=== PATIENT | male | born 1970 | race Caucasian/White ===

== ENCOUNTER 2019-09-15 19:51 | Observation (INO) ==
[2019-09-15] MEDS ORDERED: IOPAMIDOL 100 ML BOTTLE IV ONE (19:52)
--- NOTE | 2019-09-15 20:08 | Emergency Department Note ---
SOB HPI - General Chief Complaint: Shortness of Breath/Dyspnea Stated Complaint: chest pain, SOB Time Seen by Provider: 09/15/19 19:58 Source: patient Mode of arrival: ambulatory Limitations: no limitations - History of Present Illness Surgery on his right arm today comes in now complaining of shortness of breath and chest pressure. He has no cardiac history nor history of COPD or asthma. States that it feels like he just cannot catch his breath. No history of DVT or PEs. Surgery today was an ulnar nerve transposition on his right arm for which he had general anesthesia-this was done over at the orthopedics surgical center - Related Data Home Medications Medication Instructions Recorded Confirmed Alpha Lipoic Acid 200 mg PO 05/01/18 Gabapentin [Neurontin] 300 mg PO ONCE 05/01/18 05/01/18 Lisinopril [Zestril] 5 mg PO DAILY 05/01/18 05/01/18 Phentermine HCl [Adipex-P] 37.5 mg PO 05/01/18 Sertraline [Zoloft] 50 mg PO DAILY 05/01/18 05/01/18 Torsemide [Demadex] 20 mg PO 05/01/18 metFORMIN HCL [Fortamet] 1,000 mg PO 05/01/18 Previous Rx's Medication Instructions Recorded Cephalexin [Keflex] 500 mg PO QID #40 cap 08/13/18 Allergies Allergy/AdvReac Type Severity Reaction Status Date / Time No Known Drug Allergies Allergy Verified 09/15/19 19:54 Review of Systems All systems ED: reviewed and negative except as stated. Past Medical History - Past Medical History Attestation: Yes: The following information was validated with the patient. Medical history: Reports: DM, other (Peripheral neuropathy, sleep apnea) Psychiatric history: Reports: depression Surgical history ED: Reports: orthopedic, other (Ulnar nerve transposition bilateral), vascular surgery (Vein stripping) - Social History smoking status: Former smoker Alcohol use: Reports: Rarely Drug use: Reports: none Physical Exam No acute distress resting. Normocephalic atraumatic. Conjunctive are clear sclera white nonicteric. No nasal discharge digestion. Oropharynx pink and moist. Posterior pharynx is clear. Neck is supple without lymphadenopathy or thyromegaly. Heart is regular rate and rhythm no murmurs appreciated. Lungs are clear to auscultation bilaterally without wheezes rales rhonchi or respiratory distress. Abdomen is soft nontender nondistended. No peritoneal signs or guarding. Right arm is in a Trever wrap/splint. Bilateral lower legs wit hout edema Limitations: no limitations Course Vital Signs Temperature 97.9 F 09/15/19 19:52 Respiratory Rate 20 09/15/19 19:52 Blood Pressure 153/84 09/15/19 19:52 Pulse Oximetry (%) 95 09/15/19 19:52 Temperature 97.9 F 09/15/19 19:52 Pulse Rate 80 09/15/19 23:01 Respiratory Rate 18 09/15/19 23:01 Blood Pressure 138/77 09/15/19 23:01 Pulse Oximetry (%) 94 09/15/19 23:01 Shortness of Breath/Dyspnea - Lab Data Lab results reviewed: Yes I reviewed the patient's lab results. Result diagrams: 09/15/19 20:05 09/15/19 20:05 Lab Results 09/15/19 09/15/19 09/15/19 Range/Units 20:05 20:05 20:05 WBC 5.9 (4.5-11.0) K/mcL RBC 4.31 L (4.50-5.90) M/mcL Hgb 14.4 (13.5-16.5) g/dL Hct 43.0 (41.0-55.0) % POC Hct 42.0 (41.0-55.0) % MCV 99.9 (80.0-100.0) fL MCH 33.5 (26.0-34.0) pg MCHC 33.5 (31.0-36.0) g/dL RDW 13.0 (11.5-14.5) % Plt Count 104 L (140-440) K/mcL MPV 9.0 (7.4-10.4) fL Gran % 91.0 H (38.0-78.0) % Lymph % (Auto) 8.0 L (15.5-49.0) % Roosevelt % (Auto) 0.8 L (1.0-12.0) % Eos % (Auto) 0.2 (0.0-7.0) % Baso % (Auto) 0 (0.0-2.0) % Gran # 5.4 (1.8-8.0) K/mcL Lymph # (Auto) 0.5 L (1.5-4.8) K/mcL Roosevelt # (Auto) 0 L (0.1-0.9) K/mcL Eos # (Auto) 0 (0.0-0.7) K/mcL Baso # (Auto) 0 (0.0-0.3) K/mcL VBG Lactic Acid 4.8 H* (0.5-2.0) mmol/L POC Sodium 137 (133-145) mmol/L Sodium 136 (133-145) mmol/L POC Potassium 4.1 (3.3-5.1) mmol/L Potassium 4.1 (3.3-5.1) mmol/L POC Chloride 100 (96-108) mmol/L Chloride 98 (96-108) mmol/L Carbon Dioxide 23 (22-30) mmol/L POC Total CO2 25 (22-30) mmol/L Anion Gap 15.0 (8-16) POC BUN 20 (6-20) mg/dl BUN 20 (6-20) mg/dl Creatinine 1.3 H (0.7-1.2) mg/dl POC Creatinine 1.2 (0.7-1.2) mg/dl GFR Calculation 64 Glucose 364 H (70-105) mg/dL POC Glucose 347 H (70-105) mg/dL Calcium 8.8 (8.6-10.4) mg/dl POC WB Ioniz Calcium 1.12 L (1.16-1.32) mmol/L Magnesium 2.0 (1.6-2.5) mg/dL Total Bilirubin 0.9 (0.0-1.0) mg/dL AST 30 (0-37) U/l ALT 34 (0-40) U/l Alkaline Phosphatase 75 (39-117) U/L Troponin T (0-0.03) ng/ml Total Protein 6.8 (5.9-8.4) gm/dL Albumin 4.3 (3.2-5.2) gm/dL Globulin 2.5 (2.2-3.7) gm/dL Albumin/Globulin Ratio 1.7 (1.0-2.3) Lipase 22 (7-60) U/L 09/15/19 09/15/19 09/15/19 Range/Units 20:05 22:05 22:05 WBC (4.5-11.0) K/mcL RBC (4.50-5.90) M/mcL Hgb (13.5-16.5) g/dL Hct (41.0-55.0) % POC Hct 40.0 L (41.0-55.0) % MCV (80.0-100.0) fL MCH (26.0-34.0) pg MCHC (31.0-36.0) g/dL RDW (11.5-14.5) % Plt Count (140-440) K/mcL MPV (7.4-10.4) fL Gran % (38.0-78.0) % Lymph % (Auto) (15.5-49.0) % Roosevelt % (Auto) (1.0-12.0) % Eos % (Auto) (0.0-7.0) % Baso % (Auto) (0.0-2.0) % Gran # (1.8-8.0) K/mcL Lymph # (Auto) (1.5-4.8) K/mcL Roosevelt # (Auto) (0.1-0.9) K/mcL Eos # (Auto) (0.0-0.7) K/mcL Baso # (Auto) (0.0-0.3) K/mcL VBG Lactic Acid 4.1 H* (0.5-2.0) mmol/L POC Sodium 138 (133-145) mmol/L Sodium (133-145) mmol/L POC Potassium 4.0 (3.3-5.1) mmol/L Potassium (3.3-5.1) mmol/L POC Chloride 103 (96-108) mmol/L Chloride (96-108) mmol/L Carbon Dioxide (22-30) mmol/L POC Total CO2 22 (22-30) mmol/L Anion Gap (8-16) POC BUN 19 (6-20) mg/dl BUN (6-20) mg/dl Creatinine (0.7-1.2) mg/dl POC Creatinine 1.1 (0.7-1.2) mg/dl GFR Calculation Glucose (70-105) mg/dL POC Glucose 264 H (70-105) mg/dL Calcium (8.6-10.4) mg/dl POC WB Ioniz Calcium 1.04 L (1.16-1.32) mmol/L Magnesium (1.6-2.5) mg/dL Total Bilirubin (0.0-1.0) mg/dL AST (0-37) U/l ALT (0-40) U/l Alkaline Phosphatase (39-117) U/L Troponin T < 0.01 (0-0.03) ng/ml Total Protein (5.9-8.4) gm/dL Albumin (3.2-5.2) gm/dL Globulin (2.2-3.7) gm/dL Albumin/Globulin Ratio (1.0-2.3) Lipase (7-60) U/L ABG shows mild hypoxia but otherwise normal - Radiology Data Radiology results reviewed: Yes I reviewed the patient's radiology results. CT scan of the lungs show no acute findings except for some atelectasis - EKG Data EKG attestation: Yes I reviewed and interpreted this EKG., Yes There are no EKG findings of acute coronary syndrome, Yes This EKG will be read by line mechanic Disposition Pt seen by WEB UI DEVELOPER/PA only: No Clinical Impression: Lactic acidosis, Status post surgery Hyperglycemia due to type 2 diabetes mellitus Qualifiers: Diabetes mellitus ferry terminal agent insulin use: without mcc use Qualified Cod e(s): E11.65 - Type 2 diabetes mellitus with hyperglycemia Summary: Concern for possible PE versus aspiration pneumonia versus COPD exacerbation. PE is most concerning given his recent surgical history and chest pressure. He is currently with normal vital signs and oxygen levels on room air. However we will check an ABG and a CTA of the chest. labs ordered. Blood sugar was elevated over 300 so insulin ordered 4 units. ABG showed mild hypoxia but otherwise compensated with normal pH. However lactic acid was 4.8. IV fluids were started. Concern for possible metformin related lactic acidosis After IV fluids labs were repeated. Glucose was improved but lactic acid did not improve as much as expected. It came down to 4.1- As we do not have another cause this is likely metformin related lactic acidosis. Discussed with patient his results. He is agreeable to staying in the hospital to sort this out Discussed with hospitalist, Dr. Blunt-he agreed to admit the patient for observation status for lactic acidosis likely from metformin, watch him and hydrate him overnight. His friend went to go get his CPAP so that the patient could use it overnight Disposition: Xfer As Outpt/Obs ([facility]) Condition: Fair Referrals: Monica Castillo ARNP [Primary Care Provider] - Andrew Zimmerman MD [Physician] -
[2019-09-15 20:16] LABS: POC Blood Urea Nitrogen 20 mg/dl (6-20); POC CO2 25 mmol/L (22-30); POC Calcium, Ionized 1.12 mmol/L (1.16-1.32); POC Chloride 100 mmol/L (96-108); POC Creatinine 1.2 mg/dl (0.7-1.2); POC Glucose, Random 347 mg/dL (70-105); POC Potassium 4.1 mmol/L (3.3-5.1); POC Sodium 137 mmol/L (133-145)
[2019-09-15] MEDS ORDERED: INSULIN REGULAR, HUMAN 1 UNIT/0.01 ML UNIT SQ ONE (20:33)
--- NOTE | 2019-09-15 20:52 | Cat Scan Report ---
CLINICAL INFORMATION: Previous orthopedic surgery. Dyspnea COMPARISON: None TECHNIQUE: Axial images obtained through the chest. 90ml Isovue 370 injected intravenously, and scanning was performed during pulmonary arterial phase. Sagittally and coronally reformatted images were obtained. MIP reformatted images. FINDINGS: Lungs:There is volume loss in the posterior and medial right lower lobe and right upper lobe. Lungs are otherwise negative. No other focal pulmonary parenchymal infiltrate or mass. No significant central lobular emphysema. Lungs are of relatively low volume Mediastinum, vascular:Main pulmonary artery, right pulmonary artery, left pulmonary artery are negative. No intraluminal filling defects. No lobar, segmental, or subsegmental abnormalities. Negative examination for pulmonary embolism. Thoracic aorta is negative. No thoracic aortic aneurysm. No dissection. There is no mediastinal adenopathy. No mediastinal or hilar mass Heart:No significant cardiomegaly. There is no pericardial effusion Pleura:No pleural effusion. Axilla, supraclavicular regions, chest wall:No axillary adenopathy. No supraclavicular adenopathy. Musculoskeletal:There is a T8 vertebral body hemangioma. This is benign. No compression fractures. Sternum and ribs are negative. No fracture. No lytic lesion. Upper Abdomen:Liver is low density consistent with hepatic steatosis. There is a nonspecific 12 mm low-density lesion in the posterior segment of the right lobe of the liver. This is probably a benign cyst. If this patient has a history of primary malignancy further evaluation is recommended. Findings are consistent with hepatic steatosis. Liver contour is smooth. There is no ascites. The spleen is not imaged in its entirety. The spleen measures 18.3 cm in AP diameter and 11.4 cm in mediolateral dimension. Findings are consistent with splenomegaly. IMPRESSION: 1. Negative pulmonary CTA. No pulmonary embolism 2. Finding loss in the posterior and medial aspects of the right lower lobe and right upper lobe. 3. Significant splenomegaly 4. Probable hepatic steatosis. 12 mm low-density abnormality in the right lobe of the liver is nonspecific The exam was performed using radiation dose optimization techniques including, but not limited to, automated exposure control, adjustment of the mA and/or kV according to patient size and use of iterative reconstruction technique. Interpreted and Authenticated by: Bruno Boyd 09/15/19
[2019-09-15 20:54] LABS: Basophils # (Auto) 0 K/mcL (0.0-0.3); Basophils % (Auto) 0 % (0.0-2.0); Eosinophils # (Auto) 0 K/mcL (0.0-0.7); Eosinophils % (Auto) 0.2 % (0.0-7.0); Hemoglobin 14.4 g/dL (13.5-16.5); Lymphocytes # (Auto) 0.5 K/mcL (1.5-4.8); Mean Cell Volume 99.9 fL (80.0-100.0); Mean Corpuscular HGB Conc 33.5 g/dL (31.0-36.0); Monocytes # (Auto) 0 K/mcL (0.1-0.9); Monocytes % (Auto) 0.8 % (1.0-12.0); Platelet Count 104 K/mcL (140-440); RBC 4.31 M/mcL (4.50-5.90); WBC 5.9 K/mcL (4.5-11.0)
[2019-09-15] MEDS ORDERED: 0.9 % SODIUM CHLORIDE 1,000 ML IV ONE ×2 (21:08→22:17)
[2019-09-15 21:39] LABS: ALT/SGPT 34 U/l (0-40); AST/SGOT 30 U/l (0-37); Albumin 4.3 gm/dL (3.2-5.2); Albumin/Globulin Ratio 1.7 (1.0-2.3); Alkaline Phosphatase 75 U/L (39-117); Bilirubin,Total 0.9 mg/dL (0.0-1.0); Blood Urea Nitrogen 20 mg/dl (6-20); Calcium 8.8 mg/dl (8.6-10.4); Carbon Dioxide 23 mmol/L (22-30); Chloride 98 mmol/L (96-108); Globulin 2.5 gm/dL (2.2-3.7); Glomerular Filtration Rate 64; Glucose 364 mg/dL (70-105)
[2019-09-15 22:12] LABS: POC Blood Urea Nitrogen 19 mg/dl (6-20); POC CO2 22 mmol/L (22-30); POC Calcium, Ionized 1.04 mmol/L (1.16-1.32); POC Chloride 103 mmol/L (96-108); POC Creatinine 1.1 mg/dl (0.7-1.2); POC Glucose, Random 264 mg/dL (70-105); POC Sodium 138 mmol/L (133-145)
[2019-09-15] MEDS ORDERED: INSULIN REGULAR, HUMAN 1 UNIT/0.01 ML UNIT IV ONE (22:21)
--- NOTE | 2019-09-15 23:27 | Internal Med History&Physical ---
Medical - H&P: HPI Patient information: Note initiated : 09/15/19 at 11:26 pm Service Date, if different from initiated Date: [] Patient: Rahul Cleary a 49 y/o M admitted on for chest pain, SOB. Chief Complaint: [] Chief complaint: Shortness of breath History of present illness: Mr. Cleary is a 49 year old M morbidly obese gentleman history of HANSEL and recurrent ulnar nerve compression syndrome who underwent right ulnar nerve repositioning surgery by Dr. Fu earlier today. Postoperative patient was discharged home however he started noticing increasing S OB and mid/substernal chest discomfort at rest without radiation or associated nausea diaphoresis or cough. Symptoms lasted for over 2 and half hours while at rest without relief with activity or movement prompting him to visit ER. Initial work-up was unremarkable with a CT angiogram chest however elevated lactate was noted 4.8. There was no signs of ischemia or infection during preliminary investigation. Patient received crystalloids and lactic acid down trended to 4.1. Patient carries a history of diabetes and is on metformin for last 10 years. Subsequently hospitalist service was consulted in light of shortness of breath and persistent elevated lactic acid of 4.1 of unclear etiology At the time evaluation patient is alert and oriented. He is currently on CPAP. Denies active distress and shortness of breath is improved but not quite at baseline. He is accompanied by his friend/emt intermediate. He is with 3 kids. He denies recent changes in medication, URI symptoms or sick contact. Denied productive sputum. He denies smoking or URI symptoms. He further denies significant pain at the operative site except that he is unable to move his fingers. His right forearm and hand is currently in postop erative dressing. Review of systems A 10 point review system was performed and is negative except was cussed above Medical - H&P: PMH Medical history: Morbid obesity with a BMI over 40 Neuropathy Hypertension Anxiety disorder DM type II Nerve compression syndrome Obstructive sleep apnea on CPAP Surgical history: Ulnar repositioning left arm Prior vascular surgery Medical - H&P: Meds Home Medications Medication Instructions Recorded Confirmed Type Alpha Lipoic Acid 200 mg PO DAILY 05/01/18 09/16/19 History Gabapentin [Neurontin] 300 mg PO TID 05/01/18 09/16/19 History Lisinopril [Zestril] 5 mg PO DAILY 05/01/18 09/16/19 History Torsemide [Demadex] 20 mg PO DAILY 05/01/18 09/16/19 History metFORMIN HCL [Fortamet] 1,000 mg PO BIDCC 05/01/18 09/16/19 History Multivitamin [One-Daily 1 tab PO DAILY 09/16/19 09/16/19 History Multi-Vitamin] Naproxen Sodium [Anaprox Ds] 550 mg PO Q12H PRN 09/16/19 09/16/19 History buPROPion HCL [Wellbutrin Xl] 150 mg PO DAILY 09/16/19 09/16/19 History Allergies Allergy/AdvReac Type Severity Reaction Status Date / Time No Known Drug Allergies Allergy Verified 09/16/19 01:18 Medical - H&P: Exam - Constitutional Vitals: Temp Pulse Resp BP Pulse Ox 97.9 F 80 18 138/77 94 09/15/19 19:52 09/15/19 23:01 09/15/19 23:01 09/15/19 23:01 09/15/19 23:01 General appearance: morbidly obese Exam: Alert and oriented head normocephalic Eye movement symmetrical Oral cavity dry No ear nose discharge Neck no lymphadenopathy S1-S2 regular rhythm Diminished breath sounds bases Abdomen pendulous but soft nontender nondistended Right upper extremity covered in postoperative dressing, no finger movements Lower extremity no cyanosis clubbing no joint swelling Skin no suspicious lesion Psych alert cooperative Neuro nonfocal Medical - H&P: Reslt - Labs CBC & Chem 7: 09/17/19 04:05 09/17/19 04:05 Labs: Short CBC 09/15/19 Range/Units 20:05 WBC 5.9 (4.5-11.0) K/mcL Hgb 14.4 (13.5-16.5) g/dL Hct 43.0 (41.0-55.0) % Plt Count 104 L (140-440) K/mcL BMP 09/15/19 20:05 Sodium 136 Potassium 4.1 Chloride 98 Carbon Dioxide 23 BUN 20 Creatinine 1.3 H Glucose 364 H Calcium 8.8 Cardiac Enzymes 09/15/19 Range/Units 20:05 Troponin T < 0.01 (0-0.03) ng/ml Liver Function 09/15/19 Range/Units 20:05 Total Bilirubin 0.9 (0.0-1.0) mg/dL AST 30 (0-37) U/l ALT 34 (0-40) U/l Alkaline Phosphatase 75 (39-117) U/L Albumin 4.3 (3.2-5.2) gm/dL Medical - H&P: A/P (1) Lactic acidosis Current visit: Yes Status: Acute * Lactic acidosis, downtrending. No clear signs of Infection or ischemia or hypoperfusion state, consider metformin mediated. Continue crystalloids and recheck lactate * Dyspnea with h/o HANSEL on CPAP, negative CT angiogram chest with no evidence of infiltrates. Rule out cardiac etiology with echocardiogram * Post ulnar nerve repositioning right arm-postop day 1. Continue management per orthopedics * Anxiety disorder continue bupropion * Morbid obesity with a BMI over 40, continue nutrition support/physical therapy/decubitus prophylaxis * DM type II continue metformin//CCD/sliding scale insulin * Neuropathy continue gabapentin * History of hypertension continue LUIGI inhibitor * Obstructive sleep apnea continue CPAP * Full code * Prophylaxis heparin Plan * Crystalloids/serial lactate * Echocardiogram * Prior medical condition management on home meds * Postoperative care per orthopedics
[2019-09-16] MEDS ORDERED: MAGNESIUM SULFATE 2 GM/50 ML BAG IV PRN (00:42)
[2019-09-16] MEDS ORDERED: DEXTROSE 50% 50 ML VIAL IV PRN (00:42)
[2019-09-16] MEDS ORDERED: ONDANSETRON 4 MG/2 ML VIAL IV PRN (00:42)
[2019-09-16] MEDS ORDERED: POLYETHYLENE GLYCOL 3350 17 GM PACKET PO PRN (00:42)
[2019-09-16] MEDS ORDERED: POTASSIUM CHLORIDE 20 MEQ PACKET PO PRN (00:42)
[2019-09-16] MEDS ORDERED: ONDANSETRON 4 MG ODT TABLET SL PRN (00:42)
[2019-09-16] MEDS ORDERED: BISACODYL 10 MG SUPP.RECT PR PRN (00:42)
[2019-09-16] MEDS ORDERED: MELATONIN 3 MG TABLET PO PRN (00:42)
[2019-09-16] MEDS ORDERED: DEXTROSE 31 GM ORAL.SUSP PO PRN (00:42)
[2019-09-16] MEDS ORDERED: ACETAMINOPHEN 325 MG TABLET PO PRN (00:42)
[2019-09-16] MEDS ORDERED: INSULIN LISPRO 1 UNIT/0.01 ML UNIT SQ ONE (01:18)
[2019-09-16] MEDS: INSULIN LISPRO 1 UNIT/0.01 ML UNIT SQ SCH ×5 (01:19→20:48)
[2019-09-16] MEDS: 0.9 % SODIUM CHLORIDE 1,000 ML IV SCH ×3 (01:20→21:37)
[2019-09-16] MEDS ORDERED: HYDROcodone/APAP 5/325MG TABLET PO ONE ×2 (02:09→02:46)
[2019-09-16] MEDS ORDERED: IPRATROPIUM/ALBUTEROL 3 ML AMPUL.NEB NEB ONE (02:34)
[2019-09-16] MEDS: IPRATROPIUM/ALBUTEROL 3 ML AMPUL.NEB NEB SCH ×2 (02:48→07:24)
[2019-09-16] MEDS: 0.9 % SODIUM CHLORIDE 10 ML SYRINGE IV SCH ×3 (04:57→21:44)
[2019-09-16 05:33] LABS: Hematocrit 38.7 % (41.0-55.0); Hemoglobin 13.1 g/dL (13.5-16.5); Mean Cell Volume 100.8 fL (80.0-100.0); Mean Corpuscular HGB Conc 33.8 g/dL (31.0-36.0); Mean Platelet Volume 9.1 fL (7.4-10.4); Platelet Count 110 K/mcL (140-440); RBC 3.84 M/mcL (4.50-5.90); Red Cell Distribution Width 13.1 % (11.5-14.5); WBC 5.9 K/mcL (4.5-11.0)
[2019-09-16 05:45] LABS: ALT/SGPT 29 U/l (0-40); AST/SGOT 23 U/l (0-37); Albumin 3.8 gm/dL (3.2-5.2); Albumin/Globulin Ratio 1.8 (1.0-2.3); Alkaline Phosphatase 61 U/L (39-117); Bilirubin,Direct < 0.2 mg/dL (0.0-0.3); Bilirubin,Total 0.7 mg/dL (0.0-1.0); Blood Urea Nitrogen 18 mg/dl (6-20); Calcium 8.1 mg/dl (8.6-10.4); Carbon Dioxide 20 mmol/L (22-30); Chloride 104 mmol/L (96-108); Globulin 2.1 gm/dL (2.2-3.7); Glucose 272 mg/dL (70-105); Lactate Dehydrogenase 184 U/L (94-250); Triglycerides 142 mg/dl (<150); Uric Acid 8.1 mg/dL (2.5-8.0)
[2019-09-16 05:48] LABS: Glomerular Filtration Rate 88; Phosphorous 1.7 mg/dL (2.7-4.5)
[2019-09-16 08:23] LABS: Band Neutrophils % 1 % (0-10); Lymphocytes % 6 % (15-49); Macrocytosis 1+ (NONE SEEN); Monocytes % (Manual) 4 % (1-12); Platelet Estimate DECREASED (NORMAL); RBC Morphology ABNORM (NORMAL); Segmented Neutrophils % 89 % (38-78)
[2019-09-16] MEDS: sitaGLIPtin 100 MG TABLET PO SCH (08:49)
[2019-09-16] MEDS: HEPARIN 5,000 UNIT/ML VIAL SQ SCH ×2 (08:49→20:40)
[2019-09-16] MEDS: MULTIVIT,THER IRON,CA,FA & MIN 1 TABLET PO SCH (08:49)
[2019-09-16] MEDS: DOCUSATE SODIUM 100 MG CAPSULE PO SCH ×2 (08:49→21:34)
[2019-09-16] MEDS: HYDROcodone/APAP 5/325MG TABLET PO PRN ×4 (08:56→23:15)
[2019-09-16] MEDS ORDERED: IPRATROPIUM/ALBUTEROL 3 ML AMPUL.NEB NEB PRN (10:13)
[2019-09-16] MEDS: GABAPENTIN 300 MG CAPSULE PO SCH ×2 (14:58→20:40)
[2019-09-16] MEDS: metFORMIN 500 MG TAB.XL.24H PO SCH (16:28)
[2019-09-16] MEDS ORDERED: NAPROXEN 250 MG TABLET PO PRN (17:30)
[2019-09-16] MEDS ORDERED: SENNOSIDES/DOCUSATE SODIUM 1 TAB TABLET PO SCH (21:00)
[2019-09-17 05:42] LABS: Hematocrit 37.1 % (41.0-55.0); Hemoglobin 12.5 g/dL (13.5-16.5); Mean Cell Volume 101.1 fL (80.0-100.0); Mean Corpuscular HGB Conc 33.6 g/dL (31.0-36.0); Mean Platelet Volume 8.8 fL (7.4-10.4); Platelet Count 86 K/mcL (140-440); RBC 3.67 M/mcL (4.50-5.90); WBC 5.7 K/mcL (4.5-11.0)
[2019-09-17 06:05] LABS: Bilirubin,Direct < 0.2 mg/dL (0.0-0.3); Chloride 106 mmol/L (96-108)
[2019-09-17 06:12] LABS: ALT/SGPT 24 U/l (0-40); AST/SGOT 18 U/l (0-37); Albumin 3.4 gm/dL (3.2-5.2); Albumin/Globulin Ratio 1.6 (1.0-2.3); Alkaline Phosphatase 54 U/L (39-117); Bilirubin,Total 0.6 mg/dL (0.0-1.0); Blood Urea Nitrogen 19 mg/dl (6-20); Carbon Dioxide 21 mmol/L (22-30); Globulin 2.1 gm/dL (2.2-3.7); Glomerular Filtration Rate 100; Glucose 168 mg/dL (70-105); Lactate Dehydrogenase 164 U/L (94-250); Phosphorous 2.6 mg/dL (2.7-4.5); Triglycerides 184 mg/dl (<150); Uric Acid 6.4 mg/dL (2.5-8.0)
[2019-09-17] MEDS: 0.9 % SODIUM CHLORIDE 10 ML SYRINGE IV SCH (07:05)
[2019-09-17] MEDS: 0.9 % SODIUM CHLORIDE 1,000 ML IV SCH ×2 (07:06→07:57)
[2019-09-17] MEDS: metFORMIN 500 MG TAB.XL.24H PO SCH (07:11)
[2019-09-17] MEDS: INSULIN LISPRO 1 UNIT/0.01 ML UNIT SQ SCH ×2 (07:11→11:03)
[2019-09-17] MEDS: GABAPENTIN 300 MG CAPSULE PO SCH (07:57)
[2019-09-17] MEDS: sitaGLIPtin 100 MG TABLET PO SCH (07:57)
[2019-09-17] MEDS: HEPARIN 5,000 UNIT/ML VIAL SQ SCH (07:57)
[2019-09-17] MEDS: DOCUSATE SODIUM 100 MG CAPSULE PO SCH (07:57)
[2019-09-17] MEDS: MULTIVIT,THER IRON,CA,FA & MIN 1 TABLET PO SCH (07:58)
[2019-09-17 08:15] LABS: Lymphocytes % 20 % (15-49); Monocytes % (Manual) 3 % (1-12); Platelet Estimate DECREASED (NORMAL); RBC Morphology ABNORM (NORMAL); Segmented Neutrophils % 77 % (38-78)
--- NOTE | 2019-09-17 08:29 | Internal Med Progress Note ---
Medical - PN: Subj Patient information: Note initiated : 09/17/19 at 8:29 am Service Date, if different from initiated Date: [] Patient: Rahul Cleary a 49 y/o M admitted on 09/16/19 for chest pain, SOB. Chief Complaint: [] Interval history: Mr. Cleary is a 49 year old M morbidly obese gentleman history of HANSEL and r ecurrent ulnar nerve compression syndrome who underwent right ulnar nerve repositioning surgery by Dr. Fu earlier today. Postoperative patient was discharged home however he started noticing increasing S OB and mid/substernal chest discomfort at rest without radiation or associated nausea diaphoresis or cough. Symptoms lasted for over 2 and half hours while at rest without relief with activity or movement prompting him to visit ER. Initial work-up was unremarkable with a CT angiogram chest however elevated lactate was noted 4.8. There was no signs of ischemia or infection during preliminary investigation. Patient received crystalloids and lactic acid down trended to 4.1. Patient c arries a history of diabetes and is on metformin for last 10 years. Subsequently hospitalist service was consulted in light of shortness of breath and persistent elevated lactic acid of 4.1 of unclear etiology At the time evaluation patient is alert and oriented. He is currently on CPAP. Denies active distress and shortness of breath is improved but not quite at baseline. He is accompanied by his friend/dipper and drier. He is with 3 kids. He denies recent changes in medication, URI symptoms or sick contact. Denied productive sputum. He denies smoking or URI symptoms. He further denies significant pain at the operative site except that he is unable to move his fingers. His right forearm and hand is currently in postoperative dressing. 09/16-patient seen in room. Patient feels a lot better. Lactic acid downtrending now at 3.3. Restart metformin. Continue diabetic diet. Blood sugars improving. Creatinine improving from 1.2-1.1, continue crystalloids. Phosphorus 1.7 currently on replacement. Substernal discomfort/shortness of breath much improved. Await echocardiogram. Continued numbness and tingling right hand - Constitutional Vitals: Vital Signs Temp Pulse Resp BP Pulse Ox 97.8 F 61 16 113/66 95 09/17/19 04:13 09/17/19 04:13 09/17/19 04:13 09/17/19 04:13 09/17/19 04:13 Period Temp Pulse Resp BP Sys/Blue Pulse Ox Last 24 Hr 97.8 F-98.6 F 61-90 14-20 103-133/66-72 93-95 Intake and Output 09/16/19 09/17/19 09/17/19 21:59 05:59 13:59 Intake Total 9637 297 5221 Output Total 1150 675 Balance 520 -225 1000 Weight 308 lb Intake & Output: Intake & Output 09/16/19 09/17/19 09/17/19 21:59 05:59 13:59 Intake Total 1645 112 0888 Output Total 1150 675 Balance 520 -225 1000 Weight 308 lb Intake: IV 998 1000 Sodium Chloride 0.9% 1,000 ml @ 998 1000 100 mls/hr IV .Q10H [facility] Rx#: [id number] Oral 672 450 Output: Void Amount 1150 675 Other: Meal 100 Percent of Meal Consumed 100% Urine Appearance Clear Urine Color Straw Dark Yellow Urine Odor Normal Strong General appearance: morbidly obese Exam: Alert and oriented Nonlabored breathing No anxiety Nondistended abdomen Medical - PN: Obj Da - Labs CBC & Chem 7: 09/17/19 04:05 09/17/19 04:05 Labs: Abnormal Lab Results 09/17/19 09/17/19 09/16/19 04:05 04:05 09:42 RBC 3.67 L Hgb 12.5 L Hct 37.1 L POC Hct MCV 101.1 H MCH Plt Count 86 L Gran % Lymph % (Auto) [place] % (Auto) Lymph # (Auto) [place] # (Auto) Seg Neutrophils % Lymphocytes % Platelet Estimate Decreased A RBC Morphology Abnorm A Macrocytosis VBG Lactic Acid 3.3 H Carbon Dioxide 21 L Creatinine Glucose 168 H POC Glucose Uric Acid Calcium 8.0 L POC WB Ioniz Calcium Phosphorus 2.6 L Total Protein 5.5 L Globulin 2.1 L Triglycerides 184 H 09/16/19 09/16/19 09/15/19 04:00 04:00 22:05 RBC 3.84 L Hgb 13.1 L Hct 38.7 L POC Hct 40.0 L MCV 100.8 H MCH 34.1 H Plt Count 110 L Gran % Lymph % (Auto) [place] % (Auto) Lymph # (Auto) [place] # (Auto) Seg Neutrophils % 89 H Lymphocytes % 6 L Platelet Estimate Decreased A RBC Morphology Abnorm A Macrocytosis 1+ A VBG Lactic Acid Carbon Dioxide 20 L Creatinine Glucose 272 H POC Glucose 264 H Uric Acid 8.1 H Calcium 8.1 L POC WB Ioniz Calcium 1.04 L Phosphorus 1.7 L Total Protein Globulin 2.1 L Triglycerides 09/15/19 09/15/19 09/15/19 22:05 20:05 20:05 RBC Hgb Hct POC Hct MCV MCH Plt Count Gran % Lymph % (Auto) [place] % (Auto) Lymph # (Auto) [place] # (Auto) Seg Neutrophils % Lymphocytes % Platelet Estimate RBC Morphology Macrocytosis VBG Lactic Acid 4.1 H* 4.8 H* Carbon Dioxide Creatinine 1.3 H Glucose 364 H POC Glucose 347 H Uric Acid Calcium POC WB Ioniz Calcium 1.12 L Phosphorus Total Protein Globulin Triglycerides 09/15/19 20:05 RBC 4.31 L Hgb Hct POC Hct MCV MCH Plt Count 104 L Gran % 91.0 H Lymph % (Auto) 8.0 L [place] % (Auto) 0.8 L Lymph # (Auto) 0.5 L [place] # (Auto) 0 L Seg Neutrophils % Lymphocytes % Platelet Estimate RBC Morphology Macrocytosis VBG Lactic Acid Carbon Dioxide Creatinine Glucose POC Glucose Uric Acid Calcium POC WB Ioniz Calcium Phosphorus Total Protein Globulin Triglycerides Meds: Medications Acetaminophen (Tylenol) 650 mg PO Q4-6HP PRN; Protocol PRN Reason: Per Pain Protocol/Fever > 101 Hydrocodone Bitart/Acetaminophen ([place] 5/325mg) 1 - 2 tab PO Q4HP PRN; Protocol PRN Reason: Per Pain Protocol Last Admin: 09/16/19 23:15 Dose: 2 tab Documented by: Albuterol/Ipratropium (Duoneb) 3 ml NEB Q4HP PRN PRN Reason: Shortness Of Breath Or Wheezing Bisacodyl (Dulcolax) 10 mg PA Q2-3DAYS PRN PRN Reason: Constipation Bupropion HCl (Wellbutrin Xl) 150 mg PO DAILY [facility] Last Admin: 09/17/19 07:58 Dose: 150 mg Documented by: Dextrose (Dextrose 50%) 0 ml IV UD PRN PRN Reason: Hypoglycemia Diagnostic Test (Pha) (Accu-Chek) 1 each FS ACHS [facility] Last Admin: 09/17/19 07:10 Dose: 1 each Documented by: Docusate Sodium (Colace) 100 mg PO BID [facility] Last Admin: 09/17/19 07:57 Dose: 100 mg Documented by: Gabapentin (Neurontin) 300 mg PO TID [facility] Last Admin: 09/17/19 07:57 Dose: 300 mg Documented by: Glucose (Insta-Glucose) 15 gm PO PRN PRN PRN Reason: Hypoglycemia Heparin Sodium (Porcine) (Heparin) 5,000 unit SQ Q12 [facility] Last Admin: 09/17/19 07:57 Dose: 5,000 unit Documented by: Sodium Chloride (Sodium Chloride 0.9%) 1,000 mls @ 100 mls/hr IV .Q10H [facility] Last Admin: 09/17/19 07:57 Dose: 100 mls/hr Documented by: Magnesium Sulfate (Magnesium Sulfate) 2 gm in 50 mls @ 50 mls/hr IV UD PRN PRN Reason: MG = or < 1.7 Insulin Human Lispro (Humalog) 0 unit SQ ACHS [facility]; Protocol Last Admin: 09/17/19 07:11 Dose: Not Given Documented by: Iron Carb/Multivit/Milmay/Folic Acid (Multivitamin W/Minerals) 1 tab PO DAILY [facility] Last Admin: 09/17/19 07:58 Dose: 1 tab Documented by: Lisinopril (Zestril) 5 mg PO DAILY [facility] Last Admin: 09/17/19 07:58 Dose: 5 mg Documented by: Melatonin (Melatonin 3mg Tablet) 3 mg PO HSP PRN PRN Reason: Insomnia Metformin HCl (Glucophage) 1,000 mg PO BIDCC [facility] Last Admin: 09/17/19 07:11 Dose: 1,000 mg Documented by: Naproxen (Naprosyn) 500 mg PO BIDP PRN PRN Reason: Pain Ondansetron HCl (Zofran Odt) 4 mg SL Q4-6HP PRN; Protocol PRN Reason: Nausea And Vomiting Ondansetron HCl (Zofran) 4 mg IV Q4-6HP PRN; Protocol PRN Reason: Nausea And Vomiting Polyethylene Glycol (Miralax) 17 gm PO DAILYP PRN PRN Reason: Constipation Potassium Chloride (Klor-Con) 40 meq PO DAILYP PRN PRN Reason: K+ < 3.5 Senna/Docusate Sodium (Senna Plus Tablet) 1 tab PO HS [facility] Last Admin: 09/16/19 21:34 Dose: Not Given Documented by: Sitagliptin Phosphate (Januvia) 100 mg PO DAILY [facility] Last Admin: 09/17/19 07:57 Dose: 100 mg Documented by: Sodium Chloride (Saline Flush) 10 ml IV Q8 [facility] Last Admin: 09/17/19 07:05 Dose: Not Given Documented by: Torsemide (Demadex) 20 mg PO DAILY [facility] Last Admin: 09/17/19 07:58 Dose: 20 mg Documented by: Medical - PN: A/P - Time Spent With Patient Total time spent is greater than 50% in coordination of care (as documented) at patient's floor/unit and/or counseling patient: 25 - 35 minutes (1) Lactic acidosis Status: Acute Assessment and plan: * Lactic acidosis, downtrending. Now 3.3. Possible volume depletion but no clear signs of Infection or ischemia or hypoperfusion state, consider metformin mediated. Continue crystalloids and recheck lactate * Dyspnea with h/o HANSEL on CPAP, negative CT angiogram chest with no evidence of infiltrates. Await echocardiogram * Post ulnar nerve repositioning right arm-postop day 2. Continued numbness and tingling * Anxiety disorder continue bupropion * Morbid obesity with a BMI over 40, continue nutrition support/physical therapy/decubitus prophylaxis * DM type II continue metformin//CCD/sliding scale insulin * Neuropathy continue gabapentin * History of hypertension continue LUIGI inhibitor * Obstructive sleep apnea continue CPAP * Full code * Prophylaxis heparin Plan * Continue crystalloids/serial lactate * Await echocardiogram * Prior medical condition management on home meds * Restart metformin * Continue postoperative care per orthopedics Current Visit: Yes Medical - PN: Qual - VTE Deep Vein Thrombosis/Pulmonary Embolism Present on Admission: No
[2019-09-17] MEDS: HYDROcodone/APAP 5/325MG TABLET PO PRN ×2 (08:48→11:02)
[2019-09-17] MEDS ORDERED: buPROPion 150 MG TAB.XL.24H PO SCH (09:00)
[2019-09-17] MEDS ORDERED: ALPHA LIPOIC ACID 200 MG PO SCH (09:00)
[2019-09-17] MEDS ORDERED: TORSEMIDE 10 MG TABLET PO SCH (09:00)
[2019-09-17] MEDS ORDERED: MULTIVITAMIN PO SCH (09:00)
[2019-09-17] MEDS ORDERED: LISINOPRIL 5 MG TABLET PO SCH (09:00)
--- NOTE | 2019-09-17 10:18 | Discharge Summary ---
Medical - DS: Prov Patient information: Note initiated : 09/17/19 at 10:15 am Service Date, if different from initiated Date: [] Patient: Rahul Cleary 49 y/o M admitted on 09/16/19 for chest pain, SOB. Chief Complaint: [] Date of admission: 09/16/19 00:27 Discharge date: 09/17/19 Primary care physician: Monica Castillo Consults: 09/15/19 Consult to Physician [CONS] Stat Comment: Consulting Provider: Harshad Moe Reason For Exam: Physician to Consult Medical - DS: Meds - Discharge Medications Active and Home Medications: Home Medications Alpha Lipoic Acid 200 mg PO DAILY 05/01/18 [History Confirmed 09/16/19 Last Taken 09/15/19 07:30] Gabapentin [Neurontin] 300 mg PO TID 05/01/18 [History Confirmed 09/16/19 Last Taken 09/09/19] Lisinopril [Zestril] 5 mg PO DAILY 05/01/18 [History Confirmed 09/16/19 Last Taken 09/15/19] Torsemide [Demadex] 20 mg PO DAILY 05/01/18 [History Confirmed 09/16/19 Last Taken 09/15/19 07:30] metFORMIN HCL [Fortamet] 1,000 mg PO BIDCC 05/01/18 [History Confirmed 09/16/19 Last Taken 09/15/19 07:30] Multivitamin [One-Daily Multi-Vitamin] 1 tab PO DAILY 09/16/19 [History Confirmed 09/16/19 Last Taken 09/14/19] Naproxen Sodium [Anaprox Ds] 550 mg PO Q12H PRN 09/16/19 [History Confirmed 09/16/19 Last Taken 09/09/19] buPROPion HCL [Wellbutrin Xl] 150 mg PO DAILY 09/16/19 [History Confirmed 09/16/19 Last Taken 09/15/19 07:30] Medical - DS: Hosp Hospital Course: Discharge diagnosis * Lactic acidosis, clinically resolved with crystalloids. 2.5. Likely secondary to volume depletion without evidence of Infection or ischemia * Dyspnea with h/o HANSEL on CPAP, negative CT angiogram chest with no evidence of infiltrates. Echocardiogram still pending. fax echocardiogram results to primary care physician's office on discharge. * Post ulnar nerve repositioning right arm-postop day 3. Improved movement and sensation. We will follow-up with Dr. Angel Waggoner orthopedics as outpatient * Anxiety disorder continue bupropion * Morbid obesity with a BMI over 40, recommend outpatient weight loss interventions. * DM type II continue metformin//CCD/sliding scale insulin * Neuropathy continue gabapentin * History of hypertension continue LUIGI inhibitor * Obstructive sleep apnea continue CPAP Brief hospital course Mr. Cleary is a 49 year old M morbidly obese gentleman history of HANSEL and recurrent ulnar nerve compression syndrome who underwent right ulnar nerve repositioning surgery by Dr. Fu earlier today. Postoperative patient was discharged home however he started noticing increasing S OB and mid/substernal chest discomfort at rest without radiation or associated nausea diaphoresis or cough. Symptoms lasted for over 2 and half hours while at rest without relief with ac tivity or movement prompting him to visit ER. Initial work-up was unremarkable with a CT angiogram chest however elevated lactate was noted 4.8. There was no signs of ischemia or infection during preliminary investigation. Patient received crystalloids and lactic acid down trended to 4.1. Patient carries a history of diabetes and is on metformin for last 10 years. Subsequently hospitalist service was consulted in light of shortness of breath and persistent elevated lactic acid of 4.1 of unclear etiology At the time evaluation patient is alert and oriented. He is currently on CPAP. Denies active distress and shortness of breath is improved but not quite at baseline. He is accompanied by his friend/catalyst operator chief. He is with 3 kids. He denies recent changes in medication, URI symptoms or sick contact. Denied productive sputum. He denies smoking or URI symptoms. He further denies significant pain at the operative site except that he is unable to move his fingers. His right forearm and hand is currently in postoperative dressing. 09/16-patient seen in room. Patient feels a lot better. Lactic acid downtrending now at 3.3. Restart metformin. Continue diabetic diet. Blood sugars improving. Creatinine improving from 1.2-1.1, continue crystalloids. Phosphorus 1.7 currently on replacement. Substernal discomfort/shortness of breath much improved. Await echocardiogram. Continued numbness and tingling right hand 09/17-patient doing better. No overnight events. No concerns per staff. Shortness breath resolved. Lactic acid normalized. Much improved sensation and movement. We will follow-up with orthopedics as outpatient. Discharging home with advice as below. Discharge diagnosis: . - Time Spent with Patient Total time spent providing and/or coordinating discharge services: Greater than 30 minutes Medical - DS: Exam - Constitutional Vitals: Vital Signs Temp Pulse Resp BP Pulse Ox 09/17/19 08:00 97.8 F 65 18 123/73 94 09/17/19 04:13 97.8 F 61 16 113/66 95 09/16/19 23:17 98.5 F 73 18 123/72 95 09/16/19 20:00 14 09/16/19 18:42 98.1 F 76 14 133/72 94 09/16/19 16:00 98.6 F 87 20 103/66 95 09/16/19 12:00 98.0 F 82 20 119/67 93 Intake and Output 09/16/19 09/17/19 09/17/19 21:59 05:59 13:59 Intake Total 6502 015 1285 Output Total 1150 675 Balance 520 -225 1360 Intake: IV 998 1000 Sodium Chloride 0.9% 1,000 ml @ 998 1000 100 mls/hr IV .Q10H [facility] Rx#: [id number] Oral 672 450 360 Output: Void Amount 1150 675 Other: Meal 100 Breakfast Percent of Meal Consumed 100% 100% Urine Appearance Clear Urine Color Straw Dark Yellow Urine Odor Normal Strong Weight 308 lb Medical - DS: Data Labs on day of discharge: Labs from last 24 hours 09/17/19 09/17/19 09/17/19 09:01 04:05 04:05 WBC 5.7 RBC 3.67 L Hgb 12.5 L Hct 37.1 L MCV 101.1 H MCH 33.9 MCHC 33.6 RDW 13.0 Plt Count 86 L MPV 8.8 Total Counted 100 Seg Neutrophils % 77 Band Neutrophils % Not Reportable Lymphocytes % 20 Monocytes % (Manual) 3 Platelet Estimate Decreased A RBC Morphology Abnorm A VBG Lactic Acid 2.5 H Sodium 138 Potassium 4.2 Chloride 106 Carbon Dioxide 21 L Anion Gap 11.0 BUN 19 Creatinine 0.9 GFR Calculation 100 Glucose 168 H Uric Acid 6.4 Calcium 8.0 L Phosphorus 2.6 L Magnesium 2.1 Total Bilirubin 0.6 Direct Bilirubin < 0.2 GGT 30 AST 18 ALT 24 Alkaline Phosphatase 54 Lactate Dehydrogenase 164 Total Protein 5.5 L Albumin 3.4 Globulin 2.1 L Albumin/Globulin Ratio 1.6 Triglycerides 184 H 09/16/19 09:42 WBC RBC Hgb Hct MCV MCH MCHC RDW Plt Count MPV Total Counted Seg Neutrophils % Band Neutrophils % Lymphocytes % Monocytes % (Manual) Platelet Estimate RBC Morphology VBG Lactic Acid 3.3 H Sodium Potassium Chloride Carbon Dioxide Anion Gap BUN Creatinine GFR Calculation Glucose Uric Acid Calcium Phosphorus Magnesium Total Bilirubin Direct Bilirubin GGT AST ALT Alkaline Phosphatase Lactate Dehydrogenase Total Protein Albumin Globulin Albumin/Globulin Ratio Triglycerides Preliminary micro results at discharge 09/16/19 10:50 Urine Culture - Preliminary Urine - Clean Void [facility] - DS: A/P - Patient/Caregiver Discharge Instructions Diet: Consistent Carbohydrate Additional Instructions: Follow-up with orthopedics as advised Weight loss interventions - Problem Maintenance (1) Lactic acidosis Status: Acute - Follow up Plan Follow up with: Monica Castillo ARNP [Primary Care Provider] - Andrew Zimmerman MD [Physician] - Disposition: Home, Self-Care Prognosis: Fair Rehab Potential: Fair I certify that the patient requires SNF services: No Overall status at discharge: patient is progressing back to baseline Medical - DS: Qual - VTE Deep Vein Thrombosis/Pulmonary Embolism Present on Admission: No
== END 2019-09-17 12:14 | disposition home or self-care (01) ==
LOC: MEDSUR 19:51 → ED 19:51 → MEDSUR 09-16 00:27
PROVIDERS: ADMIT Internal Medicine; ATTEND Internal Medicine